=== PATIENT | female | born 1995 | race Two or more races ===

== ENCOUNTER → 2021-02-20 | Day surgery (SDC) | payer OTHER ==
[~2021-02-20] MED LIST: MEGESTROL PO
== END | disposition home or self-care (01) ==
LOC: EDSTATUS 02-14 12:00 → CIR.AMB 09:38
PROVIDERS: ATTEND Specialist
DX: N84.0 Polyp of corpus uteri (principal); Z20.822 Contact with and (suspected) exposure to COVID-19

== ENCOUNTER 2021-03-31 10:04 | Emergency (ER) | payer OTHER ==
[~2021-03-31] VITALS: Ht 160 cm; Wt 107.0 kg
== END 2021-03-31 16:00 | disposition home or self-care (01) ==
LOC: ER 10:04
DX: N93.8 Other specified abnormal uterine and vaginal bleeding (principal); Z03.818 Encounter for observation for suspected exposure to other biological agents ruled out